=== PATIENT | female | born 1955 | race Two or more races ===

== ENCOUNTER → 2024-10-12 | Outpatient (CLI) | payer OTHER ==
[2024-10-12 20:36] LABS: HCT 37.4 % (37.2-46.3); HGB 11.5 g/dL (12.0-15.0); MCH 25.2 pg (27.0-32.0); MCHC 30.7 g/dL (32.0-37.0); MCV 81.8 FL (80.0-97.0); Mean Platelet Volume 13.7 FL (9.5-12.2); NRBC Per 100 WBC 0 X 10*3/uL (0.00-0.01); Platelet Count 167 X 10*3/uL (140-440); RBC 4.57 X 10*6/uL (4.10-5.20); RDW 14.8 % (11.5-14.5); WBC 7.13 X 10*3/uL (4.50-10.00)
[2024-10-12 20:37] LABS: Basophils # (A) 0.06 X 10*3/uL (0.00-0.10); Basophils % (A) 0.8 %; Eosinophils # (A) 0.17 X 10*3/uL (0.04-0.35); Eosinophils % (A) 2.4 %; Lymphocytes # (A) 1.97 X 10*3/uL (0.90-5.00); Lymphocytes % (A) 27.6 %; Monocytes # (A) 0.61 X 10*3/uL (0.20-1.00); Monocytes % (A) 8.6 %; Neutrophils # (A) 4.28 X 10*3/uL (1.80-7.70)
== END | disposition home or self-care (01) ==
LOC: LABWHC1 15:02
PROVIDERS: ATTEND Obstetrics & Gynecology
DX: C90.01 Multiple myeloma in remission (principal); R50.9 Fever, unspecified
CPT/HCPCS: 36415; 85025